=== PATIENT | male | born 1980 | race African-American/Black ===

== ENCOUNTER 2025-11-16 13:05 | Emergency (ER) | payer OTHER, SELFPAY ==
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
--- NOTE | ~2025-11-16 | XR_ITS ---
XR lumbar spine 2-3V INDICATION: Back pain COMPARISON: None. TECHNIQUE: AP and lateral views of the lumbar spine as well as coned-down views of L5-S1 were obtained. FINDINGS: There is no compression fracture or malalignment. No significant degenerative disc changes are present. No soft tissue abnormalities are identified. IMPRESSION: Normal lumbar spine. Reviewed, dictated and finalized at location S. ANY TRUCK DRIVER IMPRESSION: Normal lumbar spine.
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
--- NOTE | ~2025-11-16 | XR_ITS ---
XR hip BI 2V w AP pelvis INDICATION: pain COMPARISON: None FINDINGS: AP view the pelvis and 2 views of the left hip and 2 views of the right hip demonstrate no acute fracture or dislocation. Sacroiliac joint and symphysis pubis are intact. Joint spaces are preserved. IMPRESSION: No acute fracture or dislocation. Reviewed, dictated and finalized at location S. MS ACCOUNT SPECIALIST
[2025-11-16 13:14] VITALS: BP 119/80; PULSE 86; RESP 20; TEMP 36.7; O2SAT 100
[2025-11-16] MEDS: HYDROcodone/acetaminophen (*CRX) 5-325 MG TABLET 1 TAB PO (16:17)
[2025-11-16] MEDS: CYCLOBENZAPRINE HCL 10 MG TABLET PO (16:17)
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
[2025-11-16] MEDS: IBUPROFEN 600 MG TABLET PO (17:51)
[2025-11-16 18:17] VITALS: BP 110/75; PULSE 65; RESP 16; TEMP 36.3; O2SAT 97
== END 2025-11-16 18:19 | disposition home or self-care (01) ==
PROVIDERS: Emergency Provider Nurse Practitioner Family
DX: R51.9 Headache, unspecified (principal); S39.012A Strain of muscle, fascia and tendon of lower back, initial encounter; V47.0XXA Car driver injured in collision with fixed or stationary object in nontraffic accident, initial encounter
CPT/HCPCS: 70450; 72072; 72100; 73521; 99284; A9270